=== PATIENT | female | born 1990 | race Caucasian/White ===

== ENCOUNTER 2019-09-08 09:59 | Emergency (ER) | payer SELFPAY ==
[~2019-09-08] VITALS: Ht 175.3 cm; Wt 75.9 kg
[2019-09-08 10:25] VITALS: BP 149/95
[2019-09-08] MEDS ORDERED: DIPH,PERTUSS(ACELL),TET VAC/PF 0.5 ML IM-VACC ONE (10:30)
== END 2019-09-08 10:49 | disposition left against medical advice (07) ==
LOC: ED 10:40
DX: M79.602 Pain in left arm (principal)
CPT/HCPCS: 99281